=== PATIENT | female | born 1995 | race Caucasian/White ===

== ENCOUNTER 2020-05-20 20:01 | Emergency (ER) | payer MEDICAID, SELFPAY ==
[~2020-05-20] VITALS: Ht 160 cm; Wt 77.1 kg
[2020-05-20 20:05] VITALS: BP 124/86; Ht 160 cm; Wt 77.1 kg
== END 2020-05-20 21:05 | disposition home or self-care (01) ==
LOC: ED 20:01
DX: U07.1 COVID-19 (principal); B34.9 Viral infection, unspecified
CPT/HCPCS: U0003

== ENCOUNTER → 2020-06-07 | Outpatient (CLI) | payer MEDICAID | LOC: RD 14:05 | PROVIDERS: ATTEND Student in an Organized Health Care Education/Training Program | DX: S99.912A Unspecified injury of left ankle, initial encounter (principal); X58.XXXA Exposure to other specified factors, initial encounter; Y92.9 Unspecified place or not applicable ==